=== PATIENT | female | born 1995 | race Caucasian/White ===

== ENCOUNTER 2017-05-22 05:35 | Inpatient (IN) | payer OTHER ==
[2017-05-22] MEDS ORDERED: MISOPROSTOL 200 MCG TAB PR ×2 (06:00→06:30)
[2017-05-22] MEDS ORDERED: CARBOPROST 250 MCG INJ IM ×2 (06:00→06:30)
[2017-05-22] MEDS ORDERED: LIDOCAINE 1% (MPF) 30 ML INJ INJ (06:00)
[2017-05-22] MEDS ORDERED: OXYTOCIN 30 UNITS/LR 500 ML IV ×3 (06:00→06:30)
[2017-05-22] MEDS ORDERED: METHYLERGONOVINE 0.2 MG INJ IM (06:00)
[2017-05-22] MEDS: OXYTOCIN 30 UNITS/LR 500 ML IV ×2 (06:14→06:16)
[2017-05-22] MEDS ORDERED: LACTATED RINGER'S 1,000 ML IV* (06:28)
[2017-05-22] MEDS ORDERED: morphine 2 MG INJ IV (06:30)
[2017-05-22] MEDS ORDERED: ONDANSETRON 4 MG INJ IV (06:30)
[2017-05-22] MEDS ORDERED: ACETAMINOPHEN 325 MG TAB PO (06:30)
[2017-05-22] MEDS ORDERED: ZOLPIDEM 5 MG TAB PO (06:30)
[2017-05-22] MEDS ORDERED: HYDROCODONE/APAP (5/325) TAB PO (06:30)
[2017-05-22] MEDS ORDERED: WITCH HAZEL/GLYCERIN PAD PR (06:30)
[2017-05-22] MEDS ORDERED: DIPHENHYDRAMINE 25 MG CAP PO (06:30)
[2017-05-22] MEDS: IBUPROFEN 600 MG TAB PO ×2 (06:36→12:57)
[2017-05-22 07:55] LABS: ADD MAN DIFF? NO
[2017-05-22 08:04] LABS: ABNORMAL IP MESSAGE 1; BASOPHILS % 0.2 % (0.0-2.0); EOSINOPHILS % 0.1 % (0.0-7.0); HEMATOCRIT 32.7 % (37.0-47.0); HEMOGLOBIN 11.5 g/dl (12.0-16.0); LYMPHOCYTES # 0.8 10^3/ul (0.8-2.9); MEAN CORPUSCULAR HEMOGLOBIN 31.6 pg (29.0-33.0); MEAN CORPUSCULAR HGB CONC 35.2 g/dl (32.0-37.0); MEAN CORPUSCULAR VOLUME 89.8 fl (82.0-101.0); MEAN PLATELET VOLUME 9.3 fl (7.4-10.4); MONOCYTE # 1.6 10^3/ul (0.3-0.9); MONOCYTES % 8.4 % (0.0-11.0); NEUTROPHIL # 16.4 10^3/ul (1.6-7.5); NEUTROPHILS % 86.8 % (39.0-77.0); PLATELET COUNT 271 10^3/UL (140-415); RED BLOOD COUNT 3.64 10^6/ul (4.20-5.40); RED CELL DISTRIBUTION WIDTH 12.5 % (11.5-14.5)
[2017-05-22 08:04] LABS: WHITE BLOOD COUNT 18.9 10^3/ul (4.8-10.8)
[2017-05-22 08:16] LABS: INR 1.03; PROTIME 13.6 Sec (11.9-14.9); PT RATIO 1.1
[2017-05-22 08:17] LABS: PARTIAL THROMBOPLASTIN TIME 28.6 Sec (25.0-35.0)
[2017-05-22 08:20] LABS: POSITIVE DIFF @See below
[2017-05-22 08:55] LABS: HEPATITIS B SURFACE ANTIGEN NEGATIVE (NEGATIVE)
[2017-05-22 09:08] LABS: HIV 1&2 ANTIBODY NEGATIVE (NEGATIVE)
[2017-05-22] MEDS: SENNA/DOCUSATE NA (8.6MG/50MG) TAB PO (12:57)
[2017-05-22 14:07] LABS: HEPATITIS C VIRAL ANTIBODY NEGATIVE (NEGATIVE)
[2017-05-22 21:58] LABS: RAPID PLASMA REAGIN NONREACTIVE (NR)
[2017-05-23 12:08] LABS: RUBELLA ANTIBODY - IGG 2.46 index; RUBELLA ANTIBODY - IGM <20.00 AU/mL
== END 2017-05-22 18:00 | disposition home or self-care (01) | DRG 770 ==
LOC: OBT 05:35 → L-D 05:35 → OBT 05:36 → L-D 05:36 → PP1 09:55
PROVIDERS: Obstetrics & Gynecology Obstetrics
PROC: 10D17ZZ Extraction of Products of Conception, Retained, Via Natural or Artificial Opening (ICD-10-PCS; principal; 2017-05-22)
DX: O02.1 Missed abortion (principal)
CPT/HCPCS: 59414; 76856; 85025; 85610; 85730; 86592; 86703; 86762; 86803; 86850; 86900; 86901; 87340; 88307